=== PATIENT | female | born 1980 | race Caucasian/White ===

== ENCOUNTER → 2018-07-26 | Outpatient (CLI) | payer BC ==
--- NOTE | 2018-07-26 14:05 | 2DMMODE ---
[facility] [address] [place] [address] 2 D/M-MODE ECHOCARDIOGRAM Name: ROSE FORBES Room #: REG [facility]#: [id number] ������������� Admission: 07/26/18 ������������� Attend Phys: Francisco Duque Discharge: ��� ������������� ��� Date of : 78 Date of Service: 07/26/18 1405 �� Report #: [id number] �������� ��������������������������������������������[id number] THIS REPORT FOR: //name// APPROVED REPORT Study performed: 07/26/2018 13:10:55 EXAM: Comprehensive 2D, Doppler, and color-flow Echocardiogram Patient Location: Out-Patient Room #: Echo lab 2 Status: routine BSA: 1.68 HR: 72 bpm BP: 126/74 mmHg Rhythm: NSR Other Information Study Quality: Good Indications Palpitations 2D Dimensions RVDd: 33.01 mm IVSd: 6.79 (7-11mm) LVOT Diam: 16.54 (18-24mm) LVDd: 47.10 mm PWd: 6.95 (7-11mm) Ascending Ao: 26.76 (22-36mm) LVDs: 32.80 (25-40mm) Aortic Root: 25.54 mm IVC: 15.00 mm Volumes Left Atrial Volume (Systole) Single Plane 4CH: 27.98 mL Single Plane 2CH: 26.52 mL LA ESV Index: 20.00 mL/m2 Aortic Valve AoV Peak Tao.: 1.39 m/s AO Peak Gr.: 7.70 mmHg LVOT Max P.64 mmHg LVOT Max V: 1.08 m/s ELIZA Vmax: 1.67 cm2 Mitral Valve E/A Ratio: 1.8 MV Decel. Time: 213.71 ms MV E Max Tao.: 0.92 m/s [facility] [address] [place] [address] 2 D/M-MODE ECHOCARDIOGRAM Name: ROSE FORBES Room #: [facility]#: [id number] ������������� Admission: 07/26/18 ������������� Attend Phys: Francisco Duque Discharge: ��� ������������� ��� Date of : 78 Date of Service: 07/26/18 1405 �� Report #: [id number] �������� ��������������������������������������������[id number] MV A Tao.: 0.52 m/s MV PHT: 61.98 ms IVRT: 92.27 ms Pulmonary Valve PV Peak Tao.: 1.01 m/s PV Peak Gr.: 4.06 mmHg Pulmonary Vein P Vein S: 0.53 m/s P Vein A: 0.18 m/s P Vein D: 0.42 m/s P Vein A Dur.: 92.3 msec P Vein S/D Ratio: 1.26 Left Ventricle The left ventricle is normal size. There is normal LV segmental wall motion. There is normal left ventricular wall thickness. Left ventricular systolic function is normal. The left ventricular ejection fraction is within the normal range. LVEF is 55-60%. The left ventricular diastolic function is normal. Right Ventricle The right ventricle is normal size. The right ventricular systolic function is normal. Atria The left atrium size is normal. The right atrium size is normal. Aortic Valve The aortic valve is normal in structure. No aortic regurgitation is present. There is no aortic valvular stenosis. Mitral Valve The mitral valve is normal in structure. Trace mitral regurgitation. No evidence of mitral valve stenosis. Tricuspid Valve The tricuspid valve is normal in structure. There is no tricuspid valve regurgitation noted. Pulmonic Valve The pulmonary valve is normal in structure. There is no pulmonic valvular regurgitation. Great Vessels The aortic root is normal in size. IVC is normal in size and collapses >50% with inspiration. [address] [address] 2 D/M-MODE ECHOCARDIOGRAM Name: ROSE FORBES Room #: REG [facility]#: [id number] ������������� Admission: 07/26/18 ������������� [facility]end [facility]: [facility] Discharge: ��� ������������� ��� Date of : 78 Date of Service: 07/26/18 1405 �� Report #: [id number] �������� ��������������������������������������������[id number] Pericardium There is no pericardial effusion. <Conclusion> The left ventricle is normal size. LVEF is 55-60%. The aortic valve is normal in structure. The mitral valve is normal in structure. Trace mitral regurgitation. The tricuspid valve is normal in structure. The pulmonary valve is normal in structure. There is no pericardial effusion. ��������������������������������������������� <ELECTRONICALLY SIGNED> ���������������������������������������� By: Tyler Patel MD ��������������������������������������������� 07/26/18 1405 1405 1405 Tyler Patel MD /INF
== END ==
LOC: CV 09:39
DX: R00.2 Palpitations (principal); I47.1 Supraventricular tachycardia; Z88.5 Allergy status to narcotic agent; Z88.8 Allergy status to other drugs, medicaments and biological substances